=== PATIENT | female | born 1940 | race Caucasian/White ===

== ENCOUNTER 2019-09-02 08:54 | Day surgery (SDC) | payer MEDICARE, OTHER ==
[~2019-09-02] VITALS: Ht 162.6 cm; Wt 181.4 kg
[~2019-09-02 08:54] MED LIST: ACET500 PO; ALBU4; ALBU4 PO; ALBU90I INH; ALEN70; ALEN70 PO; AMIT50; AMIT50 PO; AMIT75 PO; ASPI81CH; ASPI81EC; ASPI81EC PO; ATEN25; ATEN25 PO; Amitriptyline100 MG PO; Aspir 8181 MG PO; B Complex #11 EACH; B-100 COMPLEX100 MG; BENTYL20 MG PO; BRINTELLIX10 MG PO; BRINTELLIX5 MG PO; CALCAVITD PO; CALCAVITDA; CALCAVITDA PO; CHOL10002 PO; CIPR500 PO; CYAN1000 PO; CYCL10 PO; Calcium + Vita1 EACH; Cipro500 MG PO; DIAZ5 PO; ERGO400 PO; ESCI20 PO; FLUC100 PO; FLUT.05NI; FLUT110OIA INH; FOLI400 PO; FURO20 PO; FURO40; FURO40 PO; Flagyl500 MG PO; GLUC500; HYDACE10B PO; HYDACE5 PO; HYDRA25 PO; HYOS.125 SL; Icaps Areds Fo1 EACH PO; LISI20 PO; LISI5 PO; LORA1 PO; LUTEIN; LUTEIN PO; LUTEIN/ZEAXANTHIN PO; MEGA RED; MULVITMINF; MULVITMINF PO; NAPR220; NEBI5 PO; Norco 5-325 Ta1 EACH PO; OMEGA 3; OMEP20ER; OMEP20ER PO; ONDA4ODT MM; OXYACE5T PO; PRED FORTE; PRED1SU; PRED1SU BOTHEYES; PRED20 PO; PRED5EL; PROM25 PO; Prilosec Otc20 MG PO; THIA100 PO; VALS80; ZEAXANTHIN; Zofran Odt4 MG SL; Zofran4 MG PO; [UNRECOGNIZED DRUG - OTHER] PO
--- NOTE | 2019-09-02 11:34 | NUR ---
09/02/19 1134 Zhane Ott PATIENT REFUSED MULTIPLE OFFERS OF SOMETHING TO DRINK, DENIES ANY PAIN OR SCRATCHINESS IN HER THROAT
--- NOTE | 2019-09-02 11:39 | NUR ---
09/02/19 1139 Zhane Ott LATE ENTRY----DURING PROCEDURE THE PATIENT VOMITED A SMALL AMOUNT OF BRIGHT RED BILE, SHE WAS GIVEN ZOFRAN PER MD ORDER AND SUCTIONED TILL CLEAR. NO DROP IN O2 SAT.DR MCKENNA AWARE
== END 2019-09-02 11:32 | disposition home or self-care (01) ==
LOC: ORSCSDS 08:54
PROVIDERS: Surgery
PROC: 0DJD8ZZ Inspection of Lower Intestinal Tract, Via Natural or Artificial Opening Endoscopic (ICD-10-PCS; principal; 2019-09-02 10:30)
DX: Z12.11 Encounter for screening for malignant neoplasm of colon (principal); K57.30 Diverticulosis of large intestine without perforation or abscess without bleeding; Z86.010 Personal history of colon polyps; I10 Essential (primary) hypertension; J45.909 Unspecified asthma, uncomplicated; G47.33 Obstructive sleep apnea (adult) (pediatric); Z79.82 Long term (current) use of aspirin; Z79.899 Other long term (current) drug therapy
CPT/HCPCS: J2405; J2704

== ENCOUNTER → 2022-04-17 | Outpatient (CLI) | payer MEDICARE, OTHER | LOC: LAB 16:47 → LAB SHORT 16:47 | DX: N39.0 Urinary tract infection, site not specified (principal) | CPT/HCPCS: 87086 ==

== ENCOUNTER → 2022-04-17 | Outpatient (CLI) | payer MEDICARE, OTHER ==
[2022-04-17 18:15] LABS: BASOPHILS ABSOLUTE AUTO 0.04 K/mm3 (0.00-0.23); BASOPHILS PERCENT AUTO 1 % (0-2); EOSINOPHILS ABSOLUTE AUTO 0.17 K/mm3 (0.00-0.68); EOSINOPHILS PERCENT AUTO 3 % (0-6); Hematocrit 33.5 % (33.0-51.0); Hemoglobin 11.1 g/dL (11.5-16.0); IMMATURE GRAN ABSOLUTE AUTO 0.01 K/mm3 (0.00-0.10); IMMATURE GRAN PERCENT AUTO 0 % (0-1); LYMPHOCYTES ABSOLUTE AUTO 2.07 K/mm3 (0.84-5.20); LYMPHOCYTES PERCENT AUTO 39 % (21-46); MONOCYTES ABSOLUTE AUTO 0.64 K/mm3 (0.16-1.47); MONOCYTES PERCENT AUTO 12 % (4-13); Mean Corpuscular HGB 32.6 pg (26.0-34.0); Mean Corpuscular HGB Conc 33.1 g/dL (31.5-36.5); Mean Corpuscular Volume 99 fL (80-100); Mean Platelet Volume 10.8 fL (9.1-12.4); NEUTROPHILS ABSOLUTE AUTO 2.43 K/mm3 (1.96-9.15); NEUTROPHILS PERCENT AUTO 45 % (41-73); Platelet Count 230 K/mm3 (150-400); RDW Coefficient Variation 13.2 % (11.7-14.2); RDW Standard Deviation 47.8 fL (35.1-46.3); White Blood Cell Count 5.36 K/mm3 (4.00-11.30)
[2022-04-17 18:31] LABS: Albumin, Blood 3.5 g/dL (3.4-5.0); Albumin/Globulin Ratio 0.9 (0.8-1.8); Bilirubin, Total 0.3 mg/dL (0.1-1.0); Bun/Creatinine Ratio 19.4 (12.0-20.0); Calcium, Blood 9.2 mg/dL (8.5-10.1); Creatinine, Blood 1.34 mg/dL (0.40-1.00); Globulin, Blood 3.9 g/dL (2.2-4.0); Potassium, Blood 3.6 mmol/L (3.5-5.5); Total Protein, Blood 7.4 g/dL (6.4-8.2)
== END | disposition home or self-care (01) ==
LOC: LAB SHORT 18:11 → LAB 18:11
PROVIDERS: Physician Assistant Medical
DX: M25.512 Pain in left shoulder (principal); M54.6 Pain in thoracic spine
CPT/HCPCS: 80053; 84484; 85025; 85651

== ENCOUNTER 2024-11-20 09:07 | Day surgery (SDC) | payer MEDICARE, OTHER ==
[~2024-11-20] VITALS: Ht 162.6 cm; Wt 61.9 kg
[~2024-11-20 09:07] MED LIST changes: +FentaNYL Citrate 50 MCG/ML 2 ML Injection ONE; +Midazolam HCl 1MG / ML 2ML Vial ONE
[2024-11-20] MEDS ORDERED: ATOR20 PO (09:35)
[2024-11-20] MEDS ORDERED: Atarax10 MG PO (09:36)
[2024-11-20] MEDS ORDERED: DORZOLAMIDE 2%10 M3 OP (09:36)
[2024-11-20] MEDS ORDERED: LUTEIN20 MG PO (09:37)
[2024-11-20] MEDS ORDERED: LORA.5 PO (09:38)
[2024-11-20] MEDS ORDERED: NS 500 ML IV ONE ×2 (09:45→09:51)
[2024-11-20] MEDS ORDERED: CeFAZolin Sodium 2,000 MG VIAL ONE (09:45)
--- NOTE | 2024-11-20 09:58 | NUR ---
11/20/24 0958 Cheli Gutierrez INJECTED 5ML OF LIDOCAINE 1% WITH EPI [id number] AT 0947. PT TOLERATED WELL.
[2024-11-20 10:39] VITALS: BP 147/52
--- NOTE | 2024-11-20 11:17 | NUR ---
11/20/24 1117 HernandesMike gardner PT DENIES PAIN AND NAUSEA AT THIS TIME. PT AGREEABLE TO D/C HOME.
== END 2024-11-20 11:17 | disposition home or self-care (01) ==
LOC: ORSCSDS 09:07
PROVIDERS: Orthopaedic Surgery
PROC: 0LN70ZZ Release Right Hand Tendon, Open Approach (ICD-10-PCS; principal; 2024-11-20 10:30)
DX: M65.321 Trigger finger, right index finger (principal); I12.9 Hypertensive chronic kidney disease with stage 1 through stage 4 chronic kidney disease, or unspecified chronic kidney disease; N18.9 Chronic kidney disease, unspecified; F32.A Depression, unspecified; K21.9 Gastro-esophageal reflux disease without esophagitis; G47.33 Obstructive sleep apnea (adult) (pediatric); I48.4 Atypical atrial flutter; Z79.82 Long term (current) use of aspirin; Z79.899 Other long term (current) drug therapy
CPT/HCPCS: J0690; J2250; J2704; J3010; J7040

== ENCOUNTER 2024-12-06 13:08 | Emergency (ER) | payer MEDICARE, OTHER ==
[~2024-12-06] VITALS: Ht 162.6 cm; Wt 61.2 kg
[~2024-12-06 13:08] MED LIST changes: +ATOR20 PO; +Atarax10 MG PO; +DORZOLAMIDE 2%10 M3 OP; -FentaNYL Citrate 50 MCG/ML 2 ML Injection ONE; +LORA.5 PO; +LUTEIN20 MG PO; -Midazolam HCl 1MG / ML 2ML Vial ONE
[2024-12-06 13:49] VITALS: BP 94/72
[2024-12-06] MEDS ORDERED: Ketorolac Tromethamine 30mg Vial IM ONE (15:30)
== END 2024-12-06 15:45 | disposition home or self-care (01) ==
LOC: ER 13:08
DX: T16.1XXA Foreign body in right ear, initial encounter (principal); I10 Essential (primary) hypertension; K21.9 Gastro-esophageal reflux disease without esophagitis; I48.91 Unspecified atrial fibrillation; Z88.8 Allergy status to other drugs, medicaments and biological substances; Z88.2 Allergy status to sulfonamides; Z79.82 Long term (current) use of aspirin; Z79.899 Other long term (current) drug therapy; W44.G1XA Audio device entering into or through a natural orifice, initial encounter
CPT/HCPCS: 69200; 96372-59; 99282-25; J1885

== ENCOUNTER 2025-03-08 05:41 | Emergency (ER) | payer MEDICARE, OTHER ==
[~2025-03-08] VITALS: Ht 165.1 cm; Wt 59.0 kg
[2025-03-08 06:47] LABS: BASOPHILS ABSOLUTE AUTO 0.03 K/mm3 (0.00-0.23); BASOPHILS PERCENT AUTO 1 % (0-2); EOSINOPHILS ABSOLUTE AUTO 0.14 K/mm3 (0.00-0.68); EOSINOPHILS PERCENT AUTO 3 % (0-6); Hematocrit 29.2 % (33.0-51.0); Hemoglobin 10.0 g/dL (11.5-16.0); IMMATURE GRAN ABSOLUTE AUTO 0.01 K/mm3 (0.00-0.10); IMMATURE GRAN PERCENT AUTO 0 % (0-1); LYMPHOCYTES ABSOLUTE AUTO 1.17 K/mm3 (0.84-5.20); LYMPHOCYTES PERCENT AUTO 21 % (21-46); MONOCYTES ABSOLUTE AUTO 0.77 K/mm3 (0.16-1.47); MONOCYTES PERCENT AUTO 14 % (4-13); Mean Corpuscular HGB Conc 34.2 g/dL (31.5-36.5); Mean Corpuscular Volume 95 fL (80-100); NEUTROPHILS ABSOLUTE AUTO 3.52 K/mm3 (1.96-9.15); NEUTROPHILS PERCENT AUTO 62 % (41-73); NRBC ABSOLUTE 0.00 K/mm3 (0.00-0.02); NRBC Auto 0.0 /100 WBC (0.0-0.2); Platelet Count 145 K/mm3 (150-400); RDW Coefficient Variation 13.2 % (11.7-14.2); RDW Standard Deviation 45.7 fL (35.1-46.3)
[2025-03-08 07:11] LABS: Alanine Aminotransfer (ALT/SGP 24.0 U/L (12-78); Albumin, Blood 3.4 g/dL (3.4-5.0); Albumin/Globulin Ratio 1.1 (0.8-1.8); Anion Gap 9.0 mmol/L (3-11); Aspartate Aminotrans (AST/SGOT 23.0 U/L (12-37); Bilirubin, Total 0.6 mg/dL (0.1-1.0); Blood Urea Nitrogen 24.0 mg/dL (8-24); CO2, Blood 26.0 mmol/L (21-32); Calcium, Blood 9.0 mg/dL (8.5-10.1); Chloride, Blood 109.0 mmol/L (98-108); Creatinine, Blood 1.18 mg/dL (0.40-1.00); Globulin, Blood 3.1 g/dL (2.2-4.0); Glucose, Blood 105.0 mg/dL (70-99); Potassium, Blood 3.5 mmol/L (3.5-5.5); Sodium, Blood 140.0 mmol/L (136-145); Total Protein, Blood 6.5 g/dL (6.4-8.2)
[2025-03-08] MEDS ORDERED: OXYC5 PO (11:34)
[2025-03-08 11:57] VITALS: BP 150/84
== END 2025-03-08 11:57 | disposition home or self-care (01) ==
LOC: ER 05:41
PROVIDERS: Emergency Medicine
DX: M54.2 Cervicalgia (principal); K21.9 Gastro-esophageal reflux disease without esophagitis; I10 Essential (primary) hypertension; Z88.2 Allergy status to sulfonamides; Z88.1 Allergy status to other antibiotic agents; Z88.8 Allergy status to other drugs, medicaments and biological substances; Z79.51 Long term (current) use of inhaled steroids; Z79.82 Long term (current) use of aspirin; Z79.899 Other long term (current) drug therapy
CPT/HCPCS: 71046; 80053; 84484; 85025; 93005; 93010; 99284-25